=== PATIENT | female | born 1965 | race Caucasian/White ===

== ENCOUNTER 2018-05-02 08:06 | Day surgery (SDC) | payer MEDICAID ==
[~2018-05-02] VITALS: Ht 165.1 cm; Wt 95.0 kg
[2018-05-02 08:36] VITALS: BP 121/82
[2018-05-02] MEDS ORDERED: NO HOME MEDS (08:45)
[2018-05-02] MEDS ORDERED: midazolam 2 mg/2 ml injection IV PRN (09:40)
[2018-05-02] MEDS ORDERED: fentaNYL/PF 50MCG/1 ML 2ML syringe IV PRN (09:40)
[2018-05-02] MEDS ORDERED: LIDOcaine 1%/PF 5ML 10 MG/ML VIAL ONE (09:51)
[2018-05-02] MEDS ORDERED: heparin sodium, porcine/PF 100unit/ml 5ML syringe ONE (09:57)
[2018-05-02] MEDS ORDERED: midazolam 2 mg/2 ml injection ONE (09:57)
[2018-05-02] MEDS ORDERED: fentaNYL/PF 50MCG/1 ML 2ML syringe ONE (09:57)
[2018-05-02 10:50] VITALS: BP 116/75
== END 2018-05-02 13:30 | disposition home or self-care (01) ==
LOC: SSTAY O 08:06
PROVIDERS: ATTEND Radiology Diagnostic Radiology
DX: C50.312 Malignant neoplasm of lower-inner quadrant of left female breast (principal); Z88.0 Allergy status to penicillin; Z88.5 Allergy status to narcotic agent; Z88.3 Allergy status to other anti-infective agents; Z90.49 Acquired absence of other specified parts of digestive tract; Z98.890 Other specified postprocedural states; Z83.6 Family history of other diseases of the respiratory system
CPT/HCPCS: 36561; 76937; 77001; 99152; 99153; A6219; C1788; C1894; J1642; J2001; J2250; J3010